=== PATIENT | female | born 1995 | race Caucasian/White ===

== ENCOUNTER 2019-11-09 16:57 | Emergency (ER) | payer OTHER ==
--- NOTE | 2019-11-09 19:12 | RAD ---
TWO VIEWS CHEST: History: Cough, fever. Congestion x 3 weeks. FINDINGS: Normal cardiac silhouette. Pleural spaces are clear. No pneumothorax. No osseous abnormalities. IMPRESSION: No acute cardiopulmonary process. POS: [facility]PP
== END 2019-11-09 18:30 | disposition home or self-care (01) ==
LOC: ERS 16:57
DX: J02.8 Acute pharyngitis due to other specified organisms (principal); B97.89 Other viral agents as the cause of diseases classified elsewhere; G40.909 Epilepsy, unspecified, not intractable, without status epilepticus
CPT/HCPCS: 71046; 87081; 87430